=== PATIENT | female | born 1990 | race Two or more races ===

== ENCOUNTER 2018-11-16 17:56 | Emergency (ER) | payer OTHER ==
[~2018-11-16] VITALS: Ht 157.5 cm; Wt 54.4 kg
[2018-11-16] MEDS ORDERED: [UNRECOGNIZED DRUG - REMARK] (18:20)
[2018-11-16] MEDS ORDERED: SULFAMETH/TRIMETH 800/160 MG TABLET PO ONE (18:45)
--- NOTE | 2018-11-16 18:49 | NUR ---
Patient discharged to home in stable conditon. Written and verbal after care instructions given to patient. Patient verbalizes understanding of instructions.
[2018-11-16] MEDS ORDERED: SULFAMETH/TRIMETH 800/160 MG TABLET ONE (18:51)
[2018-11-16 18:52] LABS: *BILIRUBIN,URIN NEGATIVE (NEGATIVE); *COLOR,URINE YELLOW (YELLOW); *KETONES,URINE NEGATIVE (NEGATIVE); *UROBILINOGEN,URINE 0.2 E.U./dl (NORMAL); LEUKOCYTE ESTERASE ,URINE TRACE (NEGATIVE); NITRITE, URINE NEGATIVE (NEGATIVE); UGLUCOSE NEGATIVE (NEGATIVE)
[2018-11-16 18:56] LABS: *BLOOD, URINE TRACE (NEGATIVE); *CLARITY,URINE SLIGHTLY HAZY (CLEAR)
[2018-11-16 18:58] LABS: MUCUS,URINE MANY /LPF (0-FEW); SQUAMOUS EPITHELIAL CELL,UR FEW /HPF (NONE SEEN)
== END 2018-11-16 18:54 | disposition home or self-care (01) ==
LOC: ER 18:09
DX: R22.31 Localized swelling, mass and lump, right upper limb (principal); N30.90 Cystitis, unspecified without hematuria
CPT/HCPCS: 87086; A4663